=== PATIENT | male | born 1975 | race Hispanic/Latino ===

== ENCOUNTER 2024-06-07 10:32 | Emergency (ER) | payer SELFPAY ==
[2024-06-07] VITALS (9 sets, daily range): BP systolic 125–175; BP diastolic 74–96
[~2024-06-07] VITALS: Ht 165.1 cm; Wt 77.0 kg
[2024-06-07] MEDS ORDERED: [UNRECOGNIZED DRUG - OTHER] AU (12:01)
== END 2024-06-07 12:37 | disposition home or self-care (01) | DRG 156 ==
LOC: ED 10:32
PROC: 3E1B78Z Irrigation of Ear using Irrigating Substance, Via Natural or Artificial Opening (ICD-10-PCS; principal; 2024-06-07)
DX: H61.21 Impacted cerumen, right ear (principal)